=== PATIENT | male | born 1945 | race African-American/Black ===

== ENCOUNTER 2018-10-14 15:25 | Inpatient (IN) | payer MEDICARE, MEDICAID ==
[~2018-10-14] VITALS: Ht 167.6 cm; Wt 99.8 kg
[~2018-10-14 15:25] MED LIST: AMLO10TA4 PO
[2018-10-14] MEDS ORDERED: DEXTROSE 50% WATER 50ML SYRINGE IV ONE ×4 (17:36→19:00)
[2018-10-14] MEDS ORDERED: DEXT 5%/0.9% NACL 1,000 ML IV ONE (19:00)
[2018-10-14 19:31] LABS: BASOPHILS % 0.3 % (0.0-2.0); EOSINOPHILS % 3.7 % (0.0-5.0); HEMATOCRIT. 36.2 % (42.0-52.0); HEMOGLOBIN. 12.2 g/dL (14.0-18.0); LYMPHOCYTES % 53.6 % (20.0-50.0); MEAN CORPUSCULAR HEMOGLOBIN 34.2 pg (28.0-32.0); MEAN CORPUSCULAR VOLUME 101.7 fL (80.0-94.0); MEAN PLATELET VOLUME 7.5 fl (7.4-10.4); MONOCYTES % 11.5 % (2.0-8.0); NEUTROPHILS % 30.9 % (40.0-76.0); PLATELET 222 x1000/uL (130-400); RED BLOOD CELL COUNT 3.56 mill/uL (4.7-6.1); RED CELL DISTRIBUTION WIDTH 13.5 % (11.6-14.6)
[2018-10-14 19:34] LABS: CHLORIDE 107 mEq/L (98-107)
[2018-10-14 19:35] LABS: INR 1.1; PROTHROMBIN TIME 11.5 sec (9.1-11.1)
[2018-10-15] MEDS ORDERED: LORAZEPAM 2MG/ML CPJ IV PRN (01:45)
[2018-10-15] MEDS ORDERED: GUAIFENESIN 200MG/10ML SUGAR FREE UDC PO PRN (01:45)
[2018-10-15] MEDS ORDERED: ONDANSETRON HCL 4MG/2ML INJ IV PRN (01:45)
[2018-10-15] MEDS ORDERED: ACETAMINOPHEN 325MG TABLET PO PRN (01:45)
[2018-10-15] MEDS ORDERED: CLONIDINE 0.1MG TABLET PO PRN (01:45)
[2018-10-15] MEDS ORDERED: HYDROCODONE/ACETAMINOPHEN 5/325MG TABLET PO PRN (01:45)
[2018-10-15] MEDS ORDERED: MAGNESIUM/ALUMINUM HYDROXIDE/SIMETHICONE 30ML UDC PO PRN (01:45)
[2018-10-15] MEDS ORDERED: DOCUSATE SODIUM 100MG CAPSULE PO PRN (01:45)
[2018-10-15 01:54] VITALS: BP 114/78
[2018-10-15] MEDS ORDERED: DEXTROSE 50% WATER 50ML SYRINGE IV PRN (02:30)
[2018-10-15] MEDS: INSULIN LISPRO 100 UNITS/ML SUBCUT SCH ×4 (07:40→20:55)
[2018-10-15 08:00] VITALS: BP 132/81
[2018-10-15] MEDS: BLOOD SUGAR DIAGNOSTIC STRIP TEST SCH ×4 (08:28→20:55)
[2018-10-15] MEDS: ASPIRIN 81MG EC TABLET PO SCH (09:00)
[2018-10-15] MEDS: DEXT 5%/0.45% NACL 1000ML 1,000 ML IV SCH ×2 (09:05→23:09)
[2018-10-15 12:00] VITALS: BP 121/85
[2018-10-15 16:00] VITALS: BP 100/53
[2018-10-15 20:00] VITALS: BP 107/54
[2018-10-15 23:47] VITALS: BP 130/78
[2018-10-16 04:00] VITALS: BP 110/67
[2018-10-16] MEDS: INSULIN LISPRO 100 UNITS/ML SUBCUT SCH ×2 (06:22→12:40)
[2018-10-16] MEDS: BLOOD SUGAR DIAGNOSTIC STRIP TEST SCH ×2 (06:22→12:29)
[2018-10-16 06:25] LABS: CHLORIDE 107 mEq/L (98-107)
[2018-10-16 06:38] LABS: LDL CHOLESTEROL 61 mg/dL (5-100)
[2018-10-16 06:41] LABS: HDL CHOLESTEROL 31 mg/dL (40-59)
[2018-10-16 06:50] LABS: BASOPHILS % 0.3 % (0.0-2.0); EOSINOPHILS % 3.9 % (0.0-5.0); HEMATOCRIT. 37.5 % (42.0-52.0); HEMOGLOBIN. 12.6 g/dL (14.0-18.0); LYMPHOCYTES % 54.3 % (20.0-50.0); MEAN CORPUSCULAR HEMOGLOBIN 34.2 pg (28.0-32.0); MEAN CORPUSCULAR VOLUME 101.9 fL (80.0-94.0); MEAN PLATELET VOLUME 7.9 fl (7.4-10.4); MONOCYTES % 12.1 % (2.0-8.0); NEUTROPHILS % 29.4 % (40.0-76.0); PLATELET 236 x1000/uL (130-400); RED BLOOD CELL COUNT 3.68 mill/uL (4.7-6.1); RED CELL DISTRIBUTION WIDTH 13.3 % (11.6-14.6)
[2018-10-16 08:30] VITALS: BP 143/87
[2018-10-16] MEDS: ASPIRIN 81MG EC TABLET PO SCH (09:01)
[2018-10-16 12:00] VITALS: BP 133/78
[2018-10-16 13:48] VITALS: BP 133/78
== END 2018-10-16 15:55 | disposition home health service (06) | DRG 207 ==
LOC: ER 15:25 → 8WST 19:41 → EDBEDREQTM 19:47 → EDBEDREQ 19:47 → ENRESERV 10-15 00:33 → SUPCPDRO 10-15 01:32
PROVIDERS: ADMIT Hospitalist; ATTEND Hospitalist
DX: I95.9 Hypotension, unspecified (principal); E43 Unspecified severe protein-calorie malnutrition; J44.9 Chronic obstructive pulmonary disease, unspecified; I69.351 Hemiplegia and hemiparesis following cerebral infarction affecting right dominant side; E16.2 Hypoglycemia, unspecified; E78.00 Pure hypercholesterolemia, unspecified; E78.5 Hyperlipidemia, unspecified; F17.200 Nicotine dependence, unspecified, uncomplicated; I10 Essential (primary) hypertension; Z79.82 Long term (current) use of aspirin; Z68.35 Body mass index [BMI] 35.0-35.9, adult
CPT/HCPCS: 36415; 71045; 80061; 82962; 83036; 93005; 93970; 96365; 96376; 99285; C1893; J7042

== ENCOUNTER 2019-01-26 20:12 | Inpatient (IN) | payer MEDICARE, MEDICAID ==
[~2019-01-26] VITALS: Ht 172.7 cm; Wt 108.4 kg
[~2019-01-26 20:12] MED LIST changes: +ACET325C5 PO; +ASPI-1158 PO; +ATOR40TA70 PO; +CHOL100034 PO; +GLIP5TAB12 PO; +HYDR12.54 PO; +LORA10TA7 PO; +LOSA50TA20 PO; +TIOT18CA3 IH
[2019-01-26] MEDS ORDERED: METHYLPREDNISOLONE SOD SUCC 125 MG/2 ML VIAL IV STA (20:21)
[2019-01-26] MEDS ORDERED: MAGNESIUM 2 G PREMIX 50 ML IV ONE (20:30)
[2019-01-26] MEDS ORDERED: PIPERACILLIN/TAZ 3.375G PREMIX 50 ML IV ONE (20:30)
[2019-01-26] MEDS ORDERED: IPRATROPIUM/ALBUTEROL 0.5-3(2.5)MG/3ML NEB HHN ONE (20:30)
[2019-01-26] MEDS ORDERED: LEVOFLOXACIN 750MG PREMIX 150 ML IV ONE (20:30)
[2019-01-26 20:33] LABS: BG CARBOXYHEMOGLOBIN 1.3 % (0.5-1.5); BG DEOXYHEMOGLOBIN 5.1 % (0.0-5.0); BG FRACTION INSPIRED OXYGEN 36; BG HCO3 ACT 21.1 mmol/L (22.0-26.0); BG METHEMOGLOBIN 0.1 % (0.0-1.5); BG OXYGEN SATURATION 94.8 % (92.0-98.5); BG OXYHEMOGLOBIN 93.5 % (94.0-97.0); BG PCO2 42.7 mmHg (35.0-45.0); BG PH 7.311 (7.350-7.450); BG PO2 82.5 mmHg (75.0-100.0); BG SAMPLE SITE RIGHT RADIAL; BG TOTAL HEMOGLOBIN 14.6 g/dL (12.0-18.0)
[2019-01-26 21:01] LABS: BASOPHILS % 0.7 % (0.0-2.0); EOSINOPHILS % 4.6 % (0.0-5.0); HEMOGLOBIN. 13.9 g/dL (14.0-18.0); MEAN CORPUSCULAR HEMOGLOBIN 35.4 pg (28.0-32.0); MEAN CORPUSCULAR VOLUME 104.3 fL (80.0-94.0); MEAN PLATELET VOLUME 7.4 fl (7.4-10.4); MONOCYTES % 9.5 % (2.0-8.0); NEUTROPHILS % 33.2 % (40.0-76.0); PLATELET 268 x1000/uL (130-400); RED BLOOD CELL COUNT 3.94 mill/uL (4.7-6.1); RED CELL DISTRIBUTION WIDTH 14.7 % (11.6-14.6)
[2019-01-26 21:03] LABS: CHLORIDE 105 mEq/L (98-107)
[2019-01-26 21:07] LABS: ETHANOL BLOOD < 10 mg/dL
[2019-01-26 21:09] LABS: D-DIMER 0.98 mg/L FEU (<0.50); INR 1.1; PARTIAL THROMBOPLASTIN TIME 26.4 sec (23.4-31.0); PROTHROMBIN TIME 11.4 sec (9.6-11.0)
[2019-01-27] VITALS (8 sets, daily range): BP systolic 100–144; BP diastolic 57–107
[2019-01-27] MEDS ORDERED: DEXTROSE 50% WATER 50ML SYRINGE IV PRN (02:00)
[2019-01-27] MEDS: DEXT 5%/0.45% NACL KCL 20MEQ/L 1,000 ML IV SCH ×2 (03:00→19:17)
[2019-01-27] MEDS: IPRATROPIUM/ALBUTEROL 0.5-3(2.5)MG/3ML NEB HHN SCH ×5 (04:51→21:39)
[2019-01-27 05:55] LABS: BASOPHILS % 0.2 % (0.0-2.0); EOSINOPHILS % 0.1 % (0.0-5.0); HEMATOCRIT. 38.3 % (42.0-52.0); HEMOGLOBIN. 12.9 g/dL (14.0-18.0); LYMPHOCYTES % 14.9 % (20.0-50.0); MEAN CORPUSCULAR HEMOGLOBIN 34.7 pg (28.0-32.0); MEAN CORPUSCULAR VOLUME 103.3 fL (80.0-94.0); MEAN PLATELET VOLUME 7.9 fl (7.4-10.4); MONOCYTES % 2.3 % (2.0-8.0); NEUTROPHILS % 82.5 % (40.0-76.0); PLATELET 253 x1000/uL (130-400); RED BLOOD CELL COUNT 3.71 mill/uL (4.7-6.1); RED CELL DISTRIBUTION WIDTH 14.3 % (11.6-14.6)
[2019-01-27 06:21] LABS: CHLORIDE 104 mEq/L (98-107)
[2019-01-27] MEDS: BLOOD SUGAR DIAGNOSTIC STRIP TEST SCH ×4 (07:30→20:41)
[2019-01-27] MEDS ORDERED: FUROSEMIDE 40MG/4ML VIAL IVP SCH (07:45)
[2019-01-27] MEDS: METHYLPREDNISOLONE SOD SUCC 40 MG/ML VIAL IV SCH ×2 (09:17→19:12)
[2019-01-27] MEDS: INSULIN LISPRO 100 UNITS/ML SUBCUT SCH ×4 (09:26→21:27)
[2019-01-27] MEDS ORDERED: ASPIRIN 300MG SUPP PR PRN (15:30)
[2019-01-27] MEDS ORDERED: SODIUM CHLORIDE 10% FOR INH 15ML VIAL NEB INH SCH (15:45)
[2019-01-27 16:20] LABS: BG BASE EXCESS -1.4 mmol/L (-2.0-2.0); BG DEOXYHEMOGLOBIN 4.6 % (0.0-5.0); BG FRACTION INSPIRED OXYGEN 30; BG OXYGEN SATURATION 95.4 % (92.0-98.5); BG OXYHEMOGLOBIN 94.4 % (94.0-97.0); BG PCO2 33.1 mmHg (35.0-45.0); BG PH 7.441 (7.350-7.450); BG PO2 74.9 mmHg (75.0-100.0); BG SAMPLE SITE LEFT RADIAL; BG TOTAL HEMOGLOBIN 12.9 g/dL (12.0-18.0); BG VENT MODE NASAL CANNULA
[2019-01-27] MEDS: LORAZEPAM 2MG/ML CPJ IV PRN (16:38)
[2019-01-27 18:31] LABS: CLARITY URINE CLEAR (CLEAR); COLOR URINE YELLOW (YELLOW); KETONES URINE NEGATIVE (NEGATIVE); LEUKOCYTE ESTERASE URINE NEGATIVE (NEGATIVE); NITRITE URINE NEGATIVE (NEGATIVE); OCCULT BLOOD URINE 3+ (NEGATIVE); PROTEIN URINE NEGATIVE (NEGATIVE); SPECIFIC GRAVITY URINE 1.013 (1.005-1.030); UROBILINOGEN URINE 0.2 E.U./dL (0.2-1.0)
[2019-01-27 18:42] LABS: *AMPHETAMINES SCREEN URINE NEGATIVE (NEGATIVE); *BARBITURATES SCREEN URINE NEGATIVE (NEGATIVE); CANNABINOID URINE SCREEN NEGATIVE (NEGATIVE)
[2019-01-27 18:43] LABS: *BENZODIAZEPINES SCREEN URINE NEGATIVE (NEGATIVE); *COCAINE SCREEN URINE NEGATIVE (NEGATIVE); METHADONE URINE SCREEN NEGATIVE (NEGATIVE); OPIATES URINE SCREEN NEGATIVE (NEGATIVE); PHENCYCLIDINE URINE SCREEN NEGATIVE (NEGATIVE)
[2019-01-27] MEDS: CEFEPIME 1,000 MG in DEXTROSE 5% WATER 50 ML IV SCH (19:12)
[2019-01-27 19:58] LABS: C REACTIVE PROTEIN QUANT 0.7 mg/L (0.0-3.0)
[2019-01-27 20:02] LABS: T4 FREE 1.14 ng/dL (0.76-1.46)
[2019-01-27] MEDS: METRONIDAZOLE 500 MG PREMIX 100 ML IV SCH (20:24)
[2019-01-27 21:52] LABS: FOLIC ACID (FOLATE) SERUM > 20.00 ng/mL (>5.38); VITAMIN B12 SERUM 356 pg/mL (211-911)
[2019-01-28] VITALS (9 sets, daily range): BP systolic 102–159; BP diastolic 33–104
[2019-01-28] MEDS: METHYLPREDNISOLONE SOD SUCC 40 MG/ML VIAL IV SCH ×2 (00:55→08:54)
[2019-01-28] MEDS: METRONIDAZOLE 500 MG PREMIX 100 ML IV SCH ×2 (02:12→09:01)
[2019-01-28] MEDS: IPRATROPIUM/ALBUTEROL 0.5-3(2.5)MG/3ML NEB HHN SCH ×6 (02:17→21:10)
[2019-01-28] MEDS: CEFEPIME 1,000 MG in DEXTROSE 5% WATER 50 ML IV SCH (05:17)
[2019-01-28] MEDS: DEXT 5%/0.45% NACL KCL 20MEQ/L 1,000 ML IV SCH ×2 (05:40→15:36)
[2019-01-28 06:17] LABS: BASOPHILS % 0.2 % (0.0-2.0); HEMATOCRIT. 37.6 % (42.0-52.0); HEMOGLOBIN. 12.7 g/dL (14.0-18.0); LYMPHOCYTES % 8.9 % (20.0-50.0); MEAN CORPUSCULAR HEMOGLOBIN 34.7 pg (28.0-32.0); MEAN CORPUSCULAR VOLUME 102.6 fL (80.0-94.0); MEAN PLATELET VOLUME 7.6 fl (7.4-10.4); MONOCYTES % 5.3 % (2.0-8.0); NEUTROPHILS % 85.6 % (40.0-76.0); PLATELET 261 x1000/uL (130-400); RED BLOOD CELL COUNT 3.67 mill/uL (4.7-6.1); RED CELL DISTRIBUTION WIDTH 14.3 % (11.6-14.6)
[2019-01-28 06:29] LABS: CHLORIDE 105 mEq/L (98-107)
[2019-01-28] MEDS: LORAZEPAM 2MG/ML CPJ IV PRN ×2 (06:39→16:39)
[2019-01-28] MEDS: BLOOD SUGAR DIAGNOSTIC STRIP TEST SCH ×4 (07:50→21:00)
[2019-01-28] MEDS: INSULIN LISPRO 100 UNITS/ML SUBCUT SCH ×4 (08:00→21:00)
[2019-01-28] MEDS: FUROSEMIDE 40MG/4ML VIAL IVP SCH (08:54)
[2019-01-28] MEDS: CLOPIDOGREL 75MG TABLET PO SCH (14:05)
[2019-01-28] MEDS: PIPERACILLIN/TAZ 3.375G PREMIX 50 ML IV SCH ×2 (15:32→23:59)
[2019-01-28] MEDS ORDERED: VANCOMYCIN 2,000 MG in DEXT 5% WATER 500 ML IV SCH (16:00)
[2019-01-28 16:30] LABS: BG BASE EXCESS -2.7 mmol/L (-2.0-2.0); BG CARBOXYHEMOGLOBIN 0.3 % (0.5-1.5); BG DEOXYHEMOGLOBIN 5.9 % (0.0-5.0); BG HCO3 ACT 21.3 mmol/L (22.0-26.0); BG METHEMOGLOBIN 0.2 % (0.0-1.5); BG OXYGEN SATURATION 94.1 % (92.0-98.5); BG OXYHEMOGLOBIN 93.6 % (94.0-97.0); BG PCO2 34.4 mmHg (35.0-45.0); BG PH 7.409 (7.350-7.450); BG PO2 72.8 mmHg (75.0-100.0); BG SAMPLE SITE RIGHT RADIAL; BG TOTAL HEMOGLOBIN 13.4 g/dL (12.0-18.0); BG VENT MODE NASAL CANNULA
[2019-01-28] MEDS: METHYLPREDNISOLONE SOD SUCC 125 MG/2 ML VIAL IV SCH ×2 (16:40→23:59)
[2019-01-28] MEDS ORDERED: IOHEXOL-350 100 ML BOTTLE ONE (17:39)
[2019-01-28] MEDS: DEXAMETHASONE 4MG/ML 1ML VIAL IV SCH ×2 (18:36→23:59)
[2019-01-29] VITALS (12 sets, daily range): BP systolic 108–154; BP diastolic 71–93
[2019-01-29] MEDS: IPRATROPIUM/ALBUTEROL 0.5-3(2.5)MG/3ML NEB HHN SCH ×5 (00:06→21:06)
[2019-01-29] MEDS: BLOOD SUGAR DIAGNOSTIC STRIP TEST SCH ×4 (05:28→21:00)
[2019-01-29] MEDS: METHYLPREDNISOLONE SOD SUCC 125 MG/2 ML VIAL IV SCH ×2 (05:35→09:31)
[2019-01-29] MEDS: PIPERACILLIN/TAZ 3.375G PREMIX 50 ML IV SCH ×3 (05:35→22:03)
[2019-01-29] MEDS: DEXAMETHASONE 4MG/ML 1ML VIAL IV SCH ×2 (05:35→12:10)
[2019-01-29 07:33] LABS: HEMATOCRIT. 36.9 % (42.0-52.0); HEMOGLOBIN. 12.6 g/dL (14.0-18.0); MEAN CORPUSCULAR VOLUME 102.5 fL (80.0-94.0); MEAN PLATELET VOLUME 7.4 fl (7.4-10.4); PLATELET 272 x1000/uL (130-400); RED CELL DISTRIBUTION WIDTH 14.4 % (11.6-14.6)
[2019-01-29] MEDS: INSULIN LISPRO 100 UNITS/ML SUBCUT SCH ×4 (09:30→22:27)
[2019-01-29] MEDS: FUROSEMIDE 40MG/4ML VIAL IVP SCH (09:31)
[2019-01-29] MEDS: CLOPIDOGREL 75MG TABLET PO SCH (09:31)
[2019-01-29 10:35] LABS: PLATELET ESTIMATE NORMAL
[2019-01-29] MEDS ORDERED: LACTULOSE 20G/30ML UDC PO NR (11:00)
[2019-01-29] MEDS ORDERED: LIDOCAINE HCL/PF 1% 2ML VIAL ONE (11:00)
[2019-01-29] MEDS ORDERED: LACTULOSE 20G/30ML UDC PO PRN (11:00)
[2019-01-29] MEDS ORDERED: METHYLPREDNISOLONE SOD SUCC 40 MG/ML VIAL IV SCH (11:30)
[2019-01-29 11:37] LABS: BG BASE EXCESS -2.8 mmol/L (-2.0-2.0); BG CARBOXYHEMOGLOBIN 0.5 % (0.5-1.5); BG DEOXYHEMOGLOBIN 5.6 % (0.0-5.0); BG FRACTION INSPIRED OXYGEN 50; BG HCO3 ACT 21.1 mmol/L (22.0-26.0); BG METHEMOGLOBIN 0.1 % (0.0-1.5); BG OXYGEN SATURATION 94.4 % (92.0-98.5); BG OXYHEMOGLOBIN 93.8 % (94.0-97.0); BG PH 7.411 (7.350-7.450); BG PO2 72.3 mmHg (75.0-100.0); BG SAMPLE SITE RIGHT RADIAL; BG TOTAL HEMOGLOBIN 13.3 g/dL (12.0-18.0); BG VENT MODE MASK - VENTI
[2019-01-29] MEDS: DOCUSATE SODIUM 250MG CAPSULE PO SCH (12:09)
[2019-01-29] MEDS: ENOXAPARIN 40MG/0.4ML SYR SUBCUT SCH (12:10)
[2019-01-29] MEDS ORDERED: VANCOMYCIN 1,250 MG in DEXT 5% WATER 250 ML IV SCH (16:00)
[2019-01-29 17:15] LABS: ANTI-NUCLEAR ANTIBODIES DIRECT Negative (Negative)
[2019-01-29] MEDS: METHYLPREDNISOLONE SOD SUCC 40 MG/ML VIAL IV SCH (17:47)
[2019-01-29] MEDS: MORPHINE SULFATE 4 MG/ML CPJ (NOT FOR IM USE) IV PRN (22:03)
[2019-01-30] VITALS (12 sets, daily range): BP systolic 105–154; BP diastolic 73–102
[2019-01-30] MEDS: IPRATROPIUM/ALBUTEROL 0.5-3(2.5)MG/3ML NEB HHN SCH ×6 (00:13→20:19)
[2019-01-30] MEDS: METHYLPREDNISOLONE SOD SUCC 40 MG/ML VIAL IV SCH ×2 (01:09→08:32)
[2019-01-30] MEDS: LORAZEPAM 2MG/ML CPJ IV PRN (03:51)
[2019-01-30] MEDS: PIPERACILLIN/TAZ 3.375G PREMIX 50 ML IV SCH (06:46)
[2019-01-30] MEDS: BLOOD SUGAR DIAGNOSTIC STRIP TEST SCH ×4 (07:30→21:00)
[2019-01-30 07:48] LABS: HEMATOCRIT. 37.8 % (42.0-52.0); HEMOGLOBIN. 12.9 g/dL (14.0-18.0); MEAN CORPUSCULAR HEMOGLOBIN 34.9 pg (28.0-32.0); MEAN CORPUSCULAR VOLUME 102.4 fL (80.0-94.0); MEAN PLATELET VOLUME 7.7 fl (7.4-10.4); PLATELET 267 x1000/uL (130-400); RED BLOOD CELL COUNT 3.69 mill/uL (4.7-6.1); RED CELL DISTRIBUTION WIDTH 14.1 % (11.6-14.6)
[2019-01-30] MEDS: FUROSEMIDE 40MG/4ML VIAL IVP SCH (08:32)
[2019-01-30] MEDS: DOCUSATE SODIUM 250MG CAPSULE PO SCH (08:32)
[2019-01-30] MEDS: CLOPIDOGREL 75MG TABLET PO SCH (08:32)
[2019-01-30] MEDS: INSULIN LISPRO 100 UNITS/ML SUBCUT SCH ×4 (08:33→21:00)
[2019-01-30] MEDS: ENOXAPARIN 40MG/0.4ML SYR SUBCUT SCH (08:34)
[2019-01-30 12:00] LABS: BG BASE EXCESS 0.2 mmol/L (-2.0-2.0); BG DEOXYHEMOGLOBIN 6.7 % (0.0-5.0); BG FRACTION INSPIRED OXYGEN 36; BG HCO3 ACT 24.8 mmol/L (22.0-26.0); BG METHEMOGLOBIN 0.1 % (0.0-1.5); BG OXYGEN SATURATION 93.2 % (92.0-98.5); BG OXYHEMOGLOBIN 92.2 % (94.0-97.0); BG PCO2 40.2 mmHg (35.0-45.0); BG PH 7.408 (7.350-7.450); BG PO2 69.5 mmHg (75.0-100.0); BG SAMPLE SITE RIGHT RADIAL; BG TOTAL HEMOGLOBIN 13.7 g/dL (12.0-18.0); BG VENT MODE NASAL CANNULA
[2019-01-30 17:58] LABS: PLATELET ESTIMATE NORMAL
[2019-01-31] VITALS (12 sets, daily range): BP systolic 96–155; BP diastolic 60–102
[2019-01-31] MEDS: IPRATROPIUM/ALBUTEROL 0.5-3(2.5)MG/3ML NEB HHN SCH ×6 (00:20→20:09)
[2019-01-31 05:54] LABS: HEMATOCRIT. 38.9 % (42.0-52.0); HEMOGLOBIN. 13.5 g/dL (14.0-18.0); MEAN CORPUSCULAR HEMOGLOBIN 35.3 pg (28.0-32.0); MEAN CORPUSCULAR VOLUME 101.4 fL (80.0-94.0); MEAN PLATELET VOLUME 7.4 fl (7.4-10.4); PLATELET 286 x1000/uL (130-400); RED BLOOD CELL COUNT 3.84 mill/uL (4.7-6.1); RED CELL DISTRIBUTION WIDTH 14.3 % (11.6-14.6)
[2019-01-31] MEDS: BLOOD SUGAR DIAGNOSTIC STRIP TEST SCH ×4 (07:31→21:00)
[2019-01-31] MEDS: INSULIN LISPRO 100 UNITS/ML SUBCUT SCH ×4 (08:00→21:00)
[2019-01-31] MEDS: DOCUSATE SODIUM 250MG CAPSULE PO SCH (08:34)
[2019-01-31] MEDS: CLOPIDOGREL 75MG TABLET PO SCH (08:40)
[2019-01-31] MEDS: ENOXAPARIN 30MG/0.3ML SYR SUBCUT SCH ×2 (08:41→21:14)
[2019-01-31] MEDS: LORAZEPAM 2MG/ML CPJ IV PRN (08:41)
[2019-01-31] MEDS ORDERED: CLOPIDOGREL 75MG TABLET PO SCH (09:00)
[2019-01-31] MEDS ORDERED: PREDNISONE 20MG TABLET PO SCH (09:00)
[2019-01-31 13:11] LABS: ANTI-MYELOPEROXIDASE AB < 9.0 U/mL (0.0-9.0); ANTI-PROTEINASE 3 ABS < 3.5 U/mL (0.0-3.5)
[2019-01-31 16:23] LABS: PLATELET ESTIMATE NORMAL
[2019-01-31 17:11] LABS: ATYPICAL P-ANCA <1:20 titer (Neg:<1:20); CYTOPLASMIC C-ANCA <1:20 titer (Neg:<1:20); PERINUCLEAR P-ANCA <1:20 titer (Neg:<1:20)
[2019-01-31] MEDS: BUDESONIDE 0.5MG/2ML NEB HHN SCH (20:09)
[2019-02-01] VITALS (14 sets, daily range): BP systolic 125–151; BP diastolic 41–107
[2019-02-01] MEDS: IPRATROPIUM/ALBUTEROL 0.5-3(2.5)MG/3ML NEB HHN SCH ×6 (00:07→20:44)
[2019-02-01 06:50] LABS: HEMATOCRIT. 41.5 % (42.0-52.0); HEMOGLOBIN. 13.7 g/dL (14.0-18.0); MEAN CORPUSCULAR HEMOGLOBIN 34.5 pg (28.0-32.0); MEAN CORPUSCULAR VOLUME 104.5 fL (80.0-94.0); MEAN PLATELET VOLUME 7.3 fl (7.4-10.4); PLATELET 246 x1000/uL (130-400); RED BLOOD CELL COUNT 3.97 mill/uL (4.7-6.1); RED CELL DISTRIBUTION WIDTH 14.6 % (11.6-14.6)
[2019-02-01 07:19] LABS: CHLORIDE 110 mEq/L (98-107)
[2019-02-01] MEDS: BLOOD SUGAR DIAGNOSTIC STRIP TEST SCH ×4 (07:30→20:20)
[2019-02-01] MEDS: INSULIN LISPRO 100 UNITS/ML SUBCUT SCH ×4 (08:00→20:21)
[2019-02-01] MEDS: BUDESONIDE 0.5MG/2ML NEB HHN SCH ×2 (08:20→20:44)
[2019-02-01] MEDS: CLOPIDOGREL 75MG TABLET PO SCH (08:23)
[2019-02-01] MEDS: DOCUSATE SODIUM 250MG CAPSULE PO SCH (08:23)
[2019-02-01 08:24] LABS: EBV VIRAL CAPSID AB IGM <36.0 U/mL (0.0-35.9)
[2019-02-01] MEDS: ENOXAPARIN 30MG/0.3ML SYR SUBCUT SCH ×2 (08:24→20:20)
[2019-02-01] MEDS ORDERED: FUROSEMIDE 40MG/4ML VIAL IVP NR (10:45)
[2019-02-01 11:17] LABS: PLATELET ESTIMATE NORMAL
[2019-02-02] VITALS (13 sets, daily range): BP systolic 106–160; BP diastolic 64–92
[2019-02-02] MEDS: IPRATROPIUM/ALBUTEROL 0.5-3(2.5)MG/3ML NEB HHN SCH ×6 (00:50→20:22)
[2019-02-02 06:36] LABS: HEMATOCRIT. 38.7 % (42.0-52.0); HEMOGLOBIN. 13.3 g/dL (14.0-18.0); MEAN CORPUSCULAR HEMOGLOBIN 35.3 pg (28.0-32.0); MEAN CORPUSCULAR VOLUME 102.7 fL (80.0-94.0); MEAN PLATELET VOLUME 7.6 fl (7.4-10.4); PLATELET 278 x1000/uL (130-400); RED BLOOD CELL COUNT 3.77 mill/uL (4.7-6.1); RED CELL DISTRIBUTION WIDTH 13.7 % (11.6-14.6)
[2019-02-02 06:56] LABS: CHLORIDE 107 mEq/L (98-107)
[2019-02-02] MEDS: BLOOD SUGAR DIAGNOSTIC STRIP TEST SCH ×5 (07:30→21:00)
[2019-02-02] MEDS: INSULIN LISPRO 100 UNITS/ML SUBCUT SCH ×4 (08:00→21:00)
[2019-02-02] MEDS: ENOXAPARIN 30MG/0.3ML SYR SUBCUT SCH ×2 (08:49→22:13)
[2019-02-02] MEDS: CLOPIDOGREL 75MG TABLET PO SCH (08:50)
[2019-02-02] MEDS: DOCUSATE SODIUM 250MG CAPSULE PO SCH (08:50)
[2019-02-02] MEDS: BUDESONIDE 0.5MG/2ML NEB HHN SCH ×2 (09:39→20:21)
[2019-02-02 12:56] LABS: PLATELET ESTIMATE NORMAL
[2019-02-02] MEDS: MORPHINE SULFATE 4 MG/ML CPJ (NOT FOR IM USE) IV PRN (22:12)
[2019-02-02] MEDS: POLYETHYLENE GLYCOL 3350 (17GM) 1 DOSE PACK PO SCH (22:13)
[2019-02-03] VITALS: BP 125/85
[2019-02-03] MEDS: IPRATROPIUM/ALBUTEROL 0.5-3(2.5)MG/3ML NEB HHN SCH ×6 (00:04→20:21)
[2019-02-03] MEDS: BLOOD SUGAR DIAGNOSTIC STRIP TEST SCH ×2 (07:32→20:35)
[2019-02-03] MEDS: INSULIN LISPRO 100 UNITS/ML SUBCUT SCH ×3 (07:45→20:36)
[2019-02-03 08:00] VITALS: BP 141/85
[2019-02-03] MEDS: BUDESONIDE 0.5MG/2ML NEB HHN SCH (08:01)
[2019-02-03] MEDS: DOCUSATE SODIUM 250MG CAPSULE PO SCH ×2 (08:58→09:00)
[2019-02-03] MEDS: CLOPIDOGREL 75MG TABLET PO SCH (08:58)
[2019-02-03] MEDS: ENOXAPARIN 30MG/0.3ML SYR SUBCUT SCH ×2 (08:59→20:35)
[2019-02-03] MEDS: MORPHINE SULFATE 2 MG/ML CPJ (NOT FOR IM USE) IV PRN (09:00)
[2019-02-03 12:00] VITALS: BP 138/79
[2019-02-03 16:00] VITALS: BP 120/76
[2019-02-03 20:00] VITALS: BP 132/86
[2019-02-03] MEDS: DIPHENHYDRAMINE 50MG/ML VIAL IV PRN (20:34)
[2019-02-03] MEDS: POLYETHYLENE GLYCOL 3350 (17GM) 1 DOSE PACK PO SCH (20:34)
[2019-02-04] VITALS: BP 149/92
[2019-02-04] MEDS: IPRATROPIUM/ALBUTEROL 0.5-3(2.5)MG/3ML NEB HHN SCH ×6 (01:05→20:39)
[2019-02-04 04:00] VITALS: BP 136/95
[2019-02-04] MEDS: BLOOD SUGAR DIAGNOSTIC STRIP TEST SCH ×2 (06:50→20:54)
[2019-02-04 07:13] LABS: BASOPHILS % 0.5 % (0.0-2.0); EOSINOPHILS % 6.4 % (0.0-5.0); HEMATOCRIT. 37.8 % (42.0-52.0); HEMOGLOBIN. 12.8 g/dL (14.0-18.0); MEAN CORPUSCULAR HEMOGLOBIN 35.1 pg (28.0-32.0); MEAN CORPUSCULAR VOLUME 103.5 fL (80.0-94.0); MEAN PLATELET VOLUME 7.6 fl (7.4-10.4); MONOCYTES % 14.6 % (2.0-8.0); NEUTROPHILS % 35.5 % (40.0-76.0); PLATELET 250 x1000/uL (130-400); RED BLOOD CELL COUNT 3.66 mill/uL (4.7-6.1); RED CELL DISTRIBUTION WIDTH 14.3 % (11.6-14.6)
[2019-02-04 07:37] LABS: CHLORIDE 105 mEq/L (98-107)
[2019-02-04 08:00] VITALS: BP 124/84
[2019-02-04] MEDS: DOCUSATE SODIUM 250MG CAPSULE PO SCH (08:50)
[2019-02-04] MEDS: CLOPIDOGREL 75MG TABLET PO SCH (08:50)
[2019-02-04] MEDS: ENOXAPARIN 30MG/0.3ML SYR SUBCUT SCH ×2 (08:50→21:06)
[2019-02-04] MEDS: MORPHINE SULFATE 2 MG/ML CPJ (NOT FOR IM USE) IV PRN (11:13)
[2019-02-04 12:00] VITALS: BP 121/75
[2019-02-04] MEDS: LACTULOSE 20G/30ML UDC PO SCH ×3 (14:15→21:06)
[2019-02-04 16:00] VITALS: BP 135/83
[2019-02-04 20:00] VITALS: BP 126/93
[2019-02-04] MEDS: INSULIN LISPRO 100 UNITS/ML SUBCUT SCH (20:55)
[2019-02-04] MEDS: QUETIAPINE FUMARATE 25MG TABLET PO SCH (21:06)
[2019-02-04] MEDS: POLYETHYLENE GLYCOL 3350 (17GM) 1 DOSE PACK PO SCH (21:06)
[2019-02-05] VITALS: BP 134/86
[2019-02-05] MEDS: IPRATROPIUM/ALBUTEROL 0.5-3(2.5)MG/3ML NEB HHN SCH ×5 (01:51→21:59)
[2019-02-05 04:00] VITALS: BP 138/84
[2019-02-05 08:00] VITALS: BP 134/85
[2019-02-05] MEDS: INSULIN LISPRO 100 UNITS/ML SUBCUT SCH ×4 (08:08→21:00)
[2019-02-05] MEDS: BLOOD SUGAR DIAGNOSTIC STRIP TEST SCH ×4 (08:08→21:34)
[2019-02-05] MEDS: CLOPIDOGREL 75MG TABLET PO SCH (08:49)
[2019-02-05] MEDS: DOCUSATE SODIUM 250MG CAPSULE PO SCH (08:49)
[2019-02-05] MEDS: ENOXAPARIN 30MG/0.3ML SYR SUBCUT SCH ×2 (08:51→21:32)
[2019-02-05 12:00] VITALS: BP 96/54
[2019-02-05 16:00] VITALS: BP 119/86
[2019-02-05] MEDS: POLYETHYLENE GLYCOL 3350 (17GM) 1 DOSE PACK PO SCH (21:32)
[2019-02-05] MEDS: QUETIAPINE FUMARATE 25MG TABLET PO SCH (21:32)
[2019-02-06] VITALS (7 sets, daily range): BP systolic 110–148; BP diastolic 65–97
[2019-02-06] MEDS: IPRATROPIUM/ALBUTEROL 0.5-3(2.5)MG/3ML NEB HHN SCH ×6 (01:26→21:17)
[2019-02-06] MEDS: BLOOD SUGAR DIAGNOSTIC STRIP TEST SCH ×4 (07:29→20:29)
[2019-02-06] MEDS: INSULIN LISPRO 100 UNITS/ML SUBCUT SCH ×4 (07:31→20:29)
[2019-02-06] MEDS: ENOXAPARIN 30MG/0.3ML SYR SUBCUT SCH ×2 (09:32→20:34)
[2019-02-06] MEDS: CLOPIDOGREL 75MG TABLET PO SCH (09:32)
[2019-02-06] MEDS: DOCUSATE SODIUM 250MG CAPSULE PO SCH (09:32)
[2019-02-06] MEDS ORDERED: NA PHOS,M-B/NA PHOS,DI-BA ENEMA 118ML PR PRN (13:00)
[2019-02-06] MEDS ORDERED: BISACODYL 10MG SUPP PR PRN (13:00)
[2019-02-06] MEDS ORDERED: NA PHOS,M-B/NA PHOS,DI-BA ENEMA 118ML PR SCH (13:00)
[2019-02-06] MEDS: LACTULOSE 20G/30ML UDC PO SCH ×3 (14:01→20:34)
[2019-02-06] MEDS: DIPHENHYDRAMINE 50MG/ML VIAL IV PRN (17:07)
[2019-02-06] MEDS: POLYETHYLENE GLYCOL 3350 (17GM) 1 DOSE PACK PO SCH ×2 (20:35)
[2019-02-06] MEDS: QUETIAPINE FUMARATE 25MG TABLET PO SCH (20:35)
[2019-02-07] VITALS: BP 130/71
[2019-02-07] MEDS: IPRATROPIUM/ALBUTEROL 0.5-3(2.5)MG/3ML NEB HHN SCH ×6 (00:32→21:00)
[2019-02-07 04:00] VITALS: BP 110/71
[2019-02-07] MEDS: BLOOD SUGAR DIAGNOSTIC STRIP TEST SCH ×4 (06:46→20:31)
[2019-02-07 08:00] VITALS: BP 102/68
[2019-02-07] MEDS: INSULIN LISPRO 100 UNITS/ML SUBCUT SCH ×4 (08:10→20:31)
[2019-02-07] MEDS: ENOXAPARIN 30MG/0.3ML SYR SUBCUT SCH ×2 (11:00→20:36)
[2019-02-07] MEDS: CLOPIDOGREL 75MG TABLET PO SCH (11:00)
[2019-02-07] MEDS: DOCUSATE SODIUM 250MG CAPSULE PO SCH (11:00)
[2019-02-07 12:00] VITALS: BP 123/80
[2019-02-07] MEDS: POLYETHYLENE GLYCOL 3350 (17GM) 1 DOSE PACK PO SCH (15:34)
[2019-02-07 16:00] VITALS: BP_SYST 110; BP_SYST 123; BP_DIAS 56; BP_DIAS 63
[2019-02-07] MEDS ORDERED: SORBITOL 70% SOLN 30ML PO NR (16:00)
[2019-02-07 20:00] VITALS: BP 134/80
[2019-02-07] MEDS: QUETIAPINE FUMARATE 25MG TABLET PO SCH (20:36)
[2019-02-08] VITALS: BP 125/70
[2019-02-08] MEDS: IPRATROPIUM/ALBUTEROL 0.5-3(2.5)MG/3ML NEB HHN SCH ×5 (00:07→16:34)
[2019-02-08 04:00] VITALS: BP 108/73
[2019-02-08] MEDS: BLOOD SUGAR DIAGNOSTIC STRIP TEST SCH ×2 (06:59→12:37)
[2019-02-08] MEDS: INSULIN LISPRO 100 UNITS/ML SUBCUT SCH ×2 (07:59→12:37)
[2019-02-08 08:00] VITALS: BP 118/78
[2019-02-08] MEDS ORDERED: DOCUSATE SODIUM 100MG CAPSULE PO SCH (09:00)
[2019-02-08] MEDS: CLOPIDOGREL 75MG TABLET PO SCH (10:29)
[2019-02-08] MEDS: ENOXAPARIN 30MG/0.3ML SYR SUBCUT SCH (10:31)
[2019-02-08 12:00] VITALS: BP 135/85
[2019-02-08 14:02] VITALS: BP 135/85
[2019-02-08] MEDS ORDERED: SORBITOL 70% SOLN 30ML PO SCH (14:30)
== END 2019-02-08 16:45 | DRG 45 ==
LOC: ER 20:12 → 5EST 23:23 → EDBEDREQ 23:28 → EDBEDREQTM 23:28 → EDBEDREQSVC 23:28 → ENRESERV 23:46 → 5EST 01-27 17:44 → 7WST 02-02 17:30
PROVIDERS: ADMIT Internal Medicine; ATTEND Internal Medicine
PROC: 4A00X4Z Measurement of Central Nervous Electrical Activity, External Approach (ICD-10-PCS; principal; 2019-01-26)
PROC: 5A09357 Assistance with Respiratory Ventilation, Less than 24 Consecutive Hours, Continuous Positive Airway Pressure (ICD-10-PCS; 2019-01-26)
PROC: 5A09357 Assistance with Respiratory Ventilation, Less than 24 Consecutive Hours, Continuous Positive Airway Pressure (ICD-10-PCS; 2019-01-27)
DX: I63.9 Cerebral infarction, unspecified (principal); J69.0 Pneumonitis due to inhalation of food and vomit; J96.01 Acute respiratory failure with hypoxia; I50.33 Acute on chronic diastolic (congestive) heart failure; G92 Toxic encephalopathy; G93.6 Cerebral edema; N17.9 Acute kidney failure, unspecified; R13.10 Dysphagia, unspecified; J44.1 Chronic obstructive pulmonary disease with (acute) exacerbation; E44.1 Mild protein-calorie malnutrition; I69.351 Hemiplegia and hemiparesis following cerebral infarction affecting right dominant side; E78.00 Pure hypercholesterolemia, unspecified; E66.9 Obesity, unspecified; I11.0 Hypertensive heart disease with heart failure; J33.8 Other polyp of sinus; E11.9 Type 2 diabetes mellitus without complications; H54.7 Unspecified visual loss; K56.41 Fecal impaction; R47.01 Aphasia; J98.11 Atelectasis; Z88.9 Allergy status to unspecified drugs, medicaments and biological substances; Z71.3 Dietary counseling and surveillance; Z79.4 Long term (current) use of insulin; Z68.36 Body mass index [BMI] 36.0-36.9, adult
CPT/HCPCS: 36415; 36600; 70551; 71045; 71275; 74018; 80048; 80305; 80320; 82140; 82164; 82375; 82607; 82746; 82805; 82962; 83036; 83520; 83605; 83880; 84439; 84443; 84481; 84484; 85379; 85651; 86038; 86140; 86256; 86431; 86664; 86665; 92610; 93005; 93880; 93970; 94640; 94660; 96365; 96375; 97110; 97162; 97167; 97530; 97535; 99291; A6261; J0692; J1100; J1200; J1650; J1815; J1940; J1956; J2060; J2270; J2543; J2920; J2930; J3370; J3475; J3490; J7050; J7060; J7131; J7512; J7620; J7626; Q9967; G0480

== ENCOUNTER 2020-03-29 14:05 | Inpatient (IN) | payer MEDICARE, MEDICAID ==
[~2020-03-29] VITALS: Ht 182.9 cm; Wt 56.2 kg
[~2020-03-29 14:05] MED LIST changes: -ACET325C5 PO; +ACET325C7 PO; -LOSA50TA20 PO; +LOSA50TA41 PO
[2020-03-29 17:30] LABS: BASOPHILS % 0.7 % (0.0-2.0); EOSINOPHILS % 4.4 % (0.0-5.0); HEMATOCRIT. 35.2 % (42.0-52.0); HEMOGLOBIN. 12.4 g/dL (14.0-18.0); LYMPHOCYTES % 50.9 % (20.0-50.0); MEAN CORPUSCULAR HEMOGLOBIN 35.3 pg (28.0-32.0); MEAN PLATELET VOLUME 7.2 fl (7.4-10.4); MONOCYTES % 10.7 % (2.0-8.0); NEUTROPHILS % 33.3 % (40.0-76.0); PLATELET 254 x1000/uL (130-400); RED BLOOD CELL COUNT 3.51 mill/uL (4.7-6.1); RED CELL DISTRIBUTION WIDTH 14.6 % (11.6-14.6)
[2020-03-29 17:38] LABS: CHLORIDE 108 mEq/L (98-107)
[2020-03-29 17:42] LABS: ETHANOL BLOOD < 10 mg/dL
[2020-03-29 17:51] LABS: CLARITY URINE TURBID (CLEAR); COLOR URINE YELLOW (YELLOW); KETONES URINE NEGATIVE (NEGATIVE); LEUKOCYTE ESTERASE URINE TRACE (NEGATIVE); NITRITE URINE NEGATIVE (NEGATIVE); OCCULT BLOOD URINE TRACE (NEGATIVE); PH URINE 7.5 (4.5-8.0); PROTEIN URINE NEGATIVE (NEGATIVE); SPECIFIC GRAVITY URINE 1.016 (1.005-1.030)
[2020-03-29 18:00] LABS: *BARBITURATES SCREEN URINE NEGATIVE (NEGATIVE)
[2020-03-29 18:01] LABS: *AMPHETAMINES SCREEN URINE NEGATIVE (NEGATIVE); *BENZODIAZEPINES SCREEN URINE NEGATIVE (NEGATIVE); *COCAINE SCREEN URINE NEGATIVE (NEGATIVE); METHADONE URINE SCREEN NEGATIVE (NEGATIVE); OPIATES URINE SCREEN NEGATIVE (NEGATIVE); PHENCYCLIDINE URINE SCREEN NEGATIVE (NEGATIVE)
[2020-03-29 18:02] LABS: CANNABINOID URINE SCREEN NEGATIVE (NEGATIVE)
[2020-03-29] MEDS ORDERED: CLONIDINE 0.1MG TABLET PO PRN (19:30)
[2020-03-29] MEDS ORDERED: KETOROLAC 15MG/ML VIAL IV PRN (19:30)
[2020-03-29] MEDS ORDERED: MAGNESIUM/ALUMINUM HYDROXIDE/SIMETHICONE 30ML UDC PO PRN (19:30)
[2020-03-29] MEDS ORDERED: IPRATROPIUM/ALBUTEROL 0.5-3(2.5)MG/3ML NEB ORI PRN (19:30)
[2020-03-29] MEDS ORDERED: ZOLPIDEM TARTRATE 5MG TABLET PO PRN (19:30)
[2020-03-29] MEDS ORDERED: ACETAMINOPHEN 325MG TABLET PO PRN ×2 (19:30)
[2020-03-29] MEDS ORDERED: NA PHOS,M-B/NA PHOS,DI-BA ENEMA 118ML PR PRN (19:30)
[2020-03-29] MEDS ORDERED: DOCUSATE SODIUM 100MG CAPSULE PO PRN (19:30)
[2020-03-29] MEDS ORDERED: NITROGLYCERIN 0.4MG TABLET SL SL PRN (19:30)
[2020-03-29] MEDS ORDERED: TRAMADOL 50MG TABLET PO PRN (19:30)
[2020-03-29] MEDS ORDERED: ONDANSETRON HCL 4MG/2ML INJ IV PRN (19:30)
[2020-03-29] MEDS ORDERED: GUAIFENESIN 200MG/10ML SUGAR FREE UDC PO PRN (19:30)
[2020-03-29] MEDS: CLOPIDOGREL 75MG TABLET PO SCH (19:50)
[2020-03-29] MEDS ORDERED: CEFTRIAXONE 1 G PREMIX 50 ML IV SCH (20:00)
[2020-03-29] MEDS: SODIUM CHLORIDE 0.9% 1,000 ML IV SCH (20:25)
[2020-03-29 20:43] LABS: FOLIC ACID (FOLATE) SERUM 16.6 ng/mL (>5.38)
[2020-03-29] MEDS: ASCORBIC ACID 500 MG TABLET PO SCH (21:00)
[2020-03-29] MEDS: ENOXAPARIN 40MG/0.4ML SYR SUBCUT SCH (21:50)
[2020-03-29] MEDS: FAMOTIDINE 20MG TABLET PO SCH (22:00)
[2020-03-29] MEDS: ATORVASTATIN CALCIUM 40MG TABLET PO SCH (22:00)
[2020-03-29] MEDS: BLOOD SUGAR DIAGNOSTIC STRIP TEST SCH (23:00)
[2020-03-29] MEDS: INSULIN LISPRO 100 UNITS/ML SUBCUT SCH (23:00)
[2020-03-29 23:55] LABS: CREATINE KINASE 161 IU/L (39-308)
[2020-03-29 23:56] LABS: CREATINE KINASE MB FRACTION 2.5 ng/mL (0.5-3.6)
[2020-03-30] MEDS: DEXTROSE 50% WATER 50ML SYRINGE IV PRN ×2 (02:40→06:59)
[2020-03-30 03:10] VITALS: BP 121/41
[2020-03-30 03:23] VITALS: BP 121/41
[2020-03-30] MEDS: BLOOD SUGAR DIAGNOSTIC STRIP TEST SCH ×4 (07:38→21:00)
[2020-03-30] MEDS: INSULIN LISPRO 100 UNITS/ML SUBCUT SCH ×4 (07:38→21:00)
[2020-03-30 08:12] VITALS: BP 128/63
[2020-03-30 09:10] LABS: BASOPHILS % 0.9 % (0.0-2.0); EOSINOPHILS % 3.9 % (0.0-5.0); HEMOGLOBIN. 11.8 g/dL (14.0-18.0); MEAN CORPUSCULAR HEMOGLOBIN 34.8 pg (28.0-32.0); MEAN CORPUSCULAR VOLUME 100.2 fL (80.0-94.0); MEAN PLATELET VOLUME 7.2 fl (7.4-10.4); MONOCYTES % 12.9 % (2.0-8.0); NEUTROPHILS % 31.3 % (40.0-76.0); PLATELET 236 x1000/uL (130-400); RED BLOOD CELL COUNT 3.39 mill/uL (4.7-6.1); RED CELL DISTRIBUTION WIDTH 14.2 % (11.6-14.6)
[2020-03-30 09:13] LABS: CHLORIDE 110 mEq/L (98-107)
[2020-03-30 09:20] LABS: PHOSPHORUS 2.8 mg/dL (2.5-4.9)
[2020-03-30 09:23] LABS: CREATINE KINASE 118 IU/L (39-308)
[2020-03-30 09:25] LABS: CREATINE KINASE MB FRACTION 1.8 ng/mL (0.5-3.6)
[2020-03-30] MEDS: SODIUM CHLORIDE 0.9% 1,000 ML IV SCH ×2 (09:30→21:04)
[2020-03-30] MEDS: CLOPIDOGREL 75MG TABLET PO SCH (09:30)
[2020-03-30] MEDS: ZINC SULFATE 220 MG ( 50 ) CAPSULE PO SCH (09:30)
[2020-03-30] MEDS: ASCORBIC ACID 500 MG TABLET PO SCH ×2 (09:30→21:00)
[2020-03-30] MEDS: FAMOTIDINE 20MG TABLET PO SCH ×2 (09:30→20:57)
[2020-03-30 12:00] VITALS: BP 129/59
[2020-03-30 16:00] VITALS: BP 126/60
[2020-03-30 20:00] VITALS: BP 124/62
[2020-03-30] MEDS: ATORVASTATIN CALCIUM 40MG TABLET PO SCH (20:57)
[2020-03-30] MEDS: CEFTRIAXONE 1 G PREMIX 50 ML IV SCH (20:57)
[2020-03-30] MEDS: ENOXAPARIN 40MG/0.4ML SYR SUBCUT SCH (20:57)
[2020-03-31] VITALS: BP 119/74
[2020-03-31] MEDS: INSULIN LISPRO 100 UNITS/ML SUBCUT SCH ×4 (07:03→20:49)
[2020-03-31] MEDS: BLOOD SUGAR DIAGNOSTIC STRIP TEST SCH ×4 (07:03→20:49)
[2020-03-31 08:00] VITALS: BP 133/66
[2020-03-31] MEDS: ZINC SULFATE 220 MG ( 50 ) CAPSULE PO SCH (10:07)
[2020-03-31] MEDS: FAMOTIDINE 20MG TABLET PO SCH ×2 (10:07→21:34)
[2020-03-31] MEDS: CLOPIDOGREL 75MG TABLET PO SCH (10:07)
[2020-03-31] MEDS: ASCORBIC ACID 500 MG TABLET PO SCH ×2 (10:07→21:34)
[2020-03-31 12:00] VITALS: BP 150/72
[2020-03-31] MEDS: SODIUM CHLORIDE 0.9% 1,000 ML IV SCH (15:37)
[2020-03-31 16:00] VITALS: BP 168/70
[2020-03-31 20:00] VITALS: BP 161/70
[2020-03-31] MEDS: ENOXAPARIN 40MG/0.4ML SYR SUBCUT SCH (21:34)
[2020-03-31] MEDS: ATORVASTATIN CALCIUM 40MG TABLET PO SCH (21:34)
[2020-03-31] MEDS: CEFTRIAXONE 1 G PREMIX 50 ML IV SCH (21:35)
[2020-04-01] VITALS: BP 158/87
[2020-04-01] MEDS: SODIUM CHLORIDE 0.9% 1,000 ML IV SCH ×2 (00:13→14:15)
[2020-04-01 04:00] VITALS: BP 142/82
[2020-04-01] MEDS: BLOOD SUGAR DIAGNOSTIC STRIP TEST SCH ×3 (07:17→17:11)
[2020-04-01] MEDS: INSULIN LISPRO 100 UNITS/ML SUBCUT SCH ×3 (07:17→17:11)
[2020-04-01 07:44] LABS: HEMATOCRIT. 27.9 % (42.0-52.0); HEMOGLOBIN. 9.8 g/dL (14.0-18.0); MEAN CORPUSCULAR HEMOGLOBIN 34.9 pg (28.0-32.0); MEAN CORPUSCULAR VOLUME 99.5 fL (80.0-94.0); MEAN PLATELET VOLUME 7.5 fl (7.4-10.4); PLATELET 203 x1000/uL (130-400); RED CELL DISTRIBUTION WIDTH 13.9 % (11.6-14.6)
[2020-04-01 08:00] VITALS: BP 144/71
[2020-04-01] MEDS: ASCORBIC ACID 500 MG TABLET PO SCH (08:26)
[2020-04-01] MEDS: ZINC SULFATE 220 MG ( 50 ) CAPSULE PO SCH (08:26)
[2020-04-01] MEDS: CLOPIDOGREL 75MG TABLET PO SCH (08:26)
[2020-04-01 08:33] LABS: CHLORIDE 113 mEq/L (98-107)
[2020-04-01] MEDS ORDERED: FAMOTIDINE 20MG/2ML VIAL IV SCH (09:00)
[2020-04-01 12:00] VITALS: BP 141/73
[2020-04-01 14:11] LABS: PLATELET ESTIMATE NORMAL
[2020-04-01 16:00] VITALS: BP 134/65
[2020-04-01 17:14] VITALS: BP 134/65
== END 2020-04-01 18:50 | DRG 52 ==
LOC: ER 14:05 → 8WST 19:23 → SUPCPDRO 19:26 → ENRESERV 03-30 02:07
PROVIDERS: ADMIT Internal Medicine; ATTEND Internal Medicine
DX: G92 Toxic encephalopathy (principal); N39.0 Urinary tract infection, site not specified; E83.52 Hypercalcemia; E11.9 Type 2 diabetes mellitus without complications; J44.9 Chronic obstructive pulmonary disease, unspecified; I69.954 Hemiplegia and hemiparesis following unspecified cerebrovascular disease affecting left non-dominant side; Z79.82 Long term (current) use of aspirin; Z79.1 Long term (current) use of non-steroidal anti-inflammatories (NSAID); Z79.899 Other long term (current) drug therapy
CPT/HCPCS: 36415; 70551; 71045; 80053; 80061; 80305; 80320; 81003; 82140; 82550; 82553; 82607; 82746; 82962; 83036; 83540; 83550; 83605; 83735; 83970; 84100; 84443; 84484; 85025; 93306; 93970; 97162; 97166; 99285; J0696; J1650; J1885; J3490; G0480

== ENCOUNTER 2020-12-15 09:13 | Inpatient (IN) | payer MEDICARE, MEDICAID ==
[~2020-12-15] VITALS: Ht 167.6 cm; Wt 67.1 kg
[~2020-12-15 09:13] MED LIST changes: -ASPI-1158 PO
[2020-12-15] MEDS ORDERED: SODIUM CHLORIDE 0.9% 1,000 ML IV ONE ×2 (09:45→12:30)
[2020-12-15 10:02] LABS: BASOPHILS % 1.1 % (0.0-2.0); EOSINOPHILS % 0.9 % (0.0-5.0); HEMATOCRIT. 31.1 % (42.0-52.0); HEMOGLOBIN. 10.4 g/dL (14.0-18.0); LYMPHOCYTES % 37.8 % (20.0-50.0); MEAN CORPUSCULAR HEMOGLOBIN 34.5 pg (28.0-32.0); MEAN CORPUSCULAR VOLUME 102.9 fL (80.0-94.0); MEAN PLATELET VOLUME 7.1 fl (7.4-10.4); MONOCYTES % 10.1 % (2.0-8.0); NEUTROPHILS % 50.1 % (40.0-76.0); PLATELET 269 x1000/uL (130-400); RED BLOOD CELL COUNT 3.02 mill/uL (4.7-6.1); RED CELL DISTRIBUTION WIDTH 13.9 % (11.6-14.6)
[2020-12-15 10:10] LABS: CHLORIDE 106 mEq/L (98-107)
[2020-12-15 10:12] LABS: INR 1.1
[2020-12-15 10:40] LABS: COLOR URINE YELLOW (YELLOW); KETONES URINE NEGATIVE (NEGATIVE); LEUKOCYTE ESTERASE URINE NEGATIVE (NEGATIVE); NITRITE URINE NEGATIVE (NEGATIVE); OCCULT BLOOD URINE NEGATIVE (NEGATIVE); PROTEIN URINE NEGATIVE (NEGATIVE); SPECIFIC GRAVITY URINE 1.017 (1.005-1.030)
[2020-12-15 10:42] LABS: CLARITY URINE CLEAR (CLEAR)
[2020-12-15] MEDS ORDERED: LORAZEPAM 2MG/ML CPJ IV ONE ×2 (11:15→12:30)
[2020-12-15] MEDS ORDERED: HYDRALAZINE 20MG/ML VIAL IV ONE (11:15)
[2020-12-15] MEDS ORDERED: MORPHINE SULFATE 2 MG/ML CPJ (NOT FOR IM USE) IV PRN (15:00)
[2020-12-15] MEDS ORDERED: CLONIDINE 0.1MG TABLET PO PRN (15:00)
[2020-12-15] MEDS ORDERED: NA PHOS,M-B/NA PHOS,DI-BA ENEMA 118ML PR PRN (15:00)
[2020-12-15] MEDS ORDERED: ONDANSETRON HCL 4MG/2ML INJ IV PRN (15:00)
[2020-12-15] MEDS ORDERED: ACETAMINOPHEN 325MG TABLET PO PRN (15:00)
[2020-12-15] MEDS ORDERED: GUAIFENESIN 200MG/10ML SUGAR FREE UDC PO PRN (15:00)
[2020-12-15] MEDS ORDERED: IPRATROPIUM/ALBUTEROL 0.5-3(2.5)MG/3ML NEB NEB PRN (15:00)
[2020-12-15] MEDS ORDERED: DIPHENHYDRAMINE 50MG/ML VIAL IV PRN (15:00)
[2020-12-15] MEDS ORDERED: MAGNESIUM/ALUMINUM HYDROXIDE/SIMETHICONE 30ML UDC PO PRN (15:00)
[2020-12-15] MEDS ORDERED: LORAZEPAM 2MG/ML CPJ IV PRN (15:00)
[2020-12-15] MEDS ORDERED: DOCUSATE SODIUM 100MG CAPSULE PO PRN (15:00)
[2020-12-15 16:05] VITALS: BP 151/82
[2020-12-15 16:50] LABS: CHLORIDE 111 mEq/L (98-107)
[2020-12-15 17:00] VITALS: BP 158/71
[2020-12-15] MEDS ORDERED: DEXTROSE 50% WATER 50ML SYRINGE IV PRN ×2 (17:15)
[2020-12-15] MEDS: INSULIN LISPRO 100 UNITS/ML SUBCUT SCH ×2 (17:50→20:24)
[2020-12-15] MEDS: BLOOD SUGAR DIAGNOSTIC STRIP TEST SCH ×2 (18:10→20:24)
[2020-12-15] MEDS: ENOXAPARIN 40MG/0.4ML SYR SUBCUT SCH (18:50)
[2020-12-15] MEDS: SODIUM CHLORIDE 0.45% 1,000 ML IV SCH (18:50)
[2020-12-15] MEDS ORDERED: TRAZ-251 MT (19:00)
[2020-12-15] MEDS ORDERED: POLY119P2 MT (19:00)
[2020-12-15 20:35] VITALS: BP 131/79
[2020-12-15] MEDS: HYDROCODONE/ACETAMINOPHEN 5/325MG TABLET PO PRN (22:19)
[2020-12-16 00:43] VITALS: BP 125/69
[2020-12-16 04:00] VITALS: BP 122/81
[2020-12-16 06:29] LABS: CHLORIDE 107 mEq/L (98-107); EOSINOPHILS % 3.5 % (0.0-5.0); HEMATOCRIT. 28.3 % (42.0-52.0); HEMOGLOBIN. 9.5 g/dL (14.0-18.0); LYMPHOCYTES % 37.8 % (20.0-50.0); MEAN CORPUSCULAR HEMOGLOBIN 34.9 pg (28.0-32.0); MEAN CORPUSCULAR VOLUME 104.3 fL (80.0-94.0); MEAN PLATELET VOLUME 7.6 fl (7.4-10.4); MONOCYTES % 9.8 % (2.0-8.0); NEUTROPHILS % 47.9 % (40.0-76.0); PLATELET 240 x1000/uL (130-400); RED BLOOD CELL COUNT 2.71 mill/uL (4.7-6.1); RED CELL DISTRIBUTION WIDTH 13.9 % (11.6-14.6)
[2020-12-16] MEDS: BLOOD SUGAR DIAGNOSTIC STRIP TEST SCH ×4 (06:29→20:34)
[2020-12-16 06:36] LABS: HDL CHOLESTEROL 63 mg/dL (40-59); LDL CHOLESTEROL 69 mg/dL (5-100)
[2020-12-16 06:38] LABS: T4 FREE 1.38 ng/dL (0.76-1.46)
[2020-12-16] MEDS: INSULIN LISPRO 100 UNITS/ML SUBCUT SCH ×4 (07:50→20:34)
[2020-12-16 08:11] VITALS: BP 140/92
[2020-12-16] MEDS: HYDROCODONE/ACETAMINOPHEN 5/325MG TABLET PO PRN (10:59)
[2020-12-16 12:26] VITALS: BP 162/86
[2020-12-16 16:18] VITALS: BP 161/82
[2020-12-16] MEDS: ENOXAPARIN 40MG/0.4ML SYR SUBCUT SCH (17:44)
[2020-12-16] MEDS: SODIUM CHLORIDE 0.45% 1,000 ML IV SCH (17:45)
[2020-12-16 20:24] VITALS: BP 162/83
[2020-12-17] VITALS (7 sets, daily range): BP systolic 130–159; BP diastolic 82–92
[2020-12-17] MEDS: HYDROCODONE/ACETAMINOPHEN 5/325MG TABLET PO PRN (01:05)
[2020-12-17] MEDS: BLOOD SUGAR DIAGNOSTIC STRIP TEST SCH ×4 (07:20→21:00)
[2020-12-17] MEDS: INSULIN LISPRO 100 UNITS/ML SUBCUT SCH ×4 (07:50→21:00)
[2020-12-17] MEDS: ENOXAPARIN 40MG/0.4ML SYR SUBCUT SCH (16:13)
[2020-12-17] MEDS: SODIUM CHLORIDE 0.45% 1,000 ML IV SCH (16:13)
[2020-12-18] VITALS: BP 147/95
[2020-12-18 04:00] VITALS: BP 148/94
[2020-12-18] MEDS: BLOOD SUGAR DIAGNOSTIC STRIP TEST SCH ×4 (07:20→21:33)
[2020-12-18] MEDS: INSULIN LISPRO 100 UNITS/ML SUBCUT SCH ×4 (07:50→21:00)
[2020-12-18 08:00] VITALS: BP 142/77
[2020-12-18] MEDS: CLOPIDOGREL 75MG TABLET PO SCH (09:15)
[2020-12-18 09:16] LABS: T4 FREE 1.42 ng/dL (0.76-1.46)
[2020-12-18 12:00] VITALS: BP 135/68
[2020-12-18] MEDS: ENOXAPARIN 40MG/0.4ML SYR SUBCUT SCH (15:07)
[2020-12-18 16:00] VITALS: BP 146/90
[2020-12-18 16:59] LABS: FOLIC ACID (FOLATE) SERUM 19.3 ng/mL (>5.38)
[2020-12-18] MEDS ORDERED: LORAZEPAM 2MG/ML CPJ IV NR (20:30)
[2020-12-18 20:40] VITALS: BP 141/84
[2020-12-18] MEDS: SODIUM CHLORIDE 0.45% 1,000 ML IV SCH (21:21)
[2020-12-19 00:38] VITALS: BP 147/86
[2020-12-19 04:00] VITALS: BP 135/91
[2020-12-19] MEDS: BLOOD SUGAR DIAGNOSTIC STRIP TEST SCH ×4 (06:50→21:04)
[2020-12-19] MEDS: INSULIN LISPRO 100 UNITS/ML SUBCUT SCH ×4 (07:26→21:00)
[2020-12-19 08:00] VITALS: BP 124/82
[2020-12-19] MEDS: CLOPIDOGREL 75MG TABLET PO SCH (08:33)
[2020-12-19] MEDS ORDERED: LORAZEPAM 2MG/ML CPJ IV NR (09:00)
[2020-12-19 12:19] VITALS: BP 128/76
[2020-12-19] MEDS: ENOXAPARIN 40MG/0.4ML SYR SUBCUT SCH (15:44)
[2020-12-19] MEDS: SODIUM CHLORIDE 0.45% 1,000 ML IV SCH (15:46)
[2020-12-19 16:15] VITALS: BP 144/86
[2020-12-19 20:00] VITALS: BP 138/74
[2020-12-19] MEDS ORDERED: LORAZEPAM 2MG/ML CPJ IV ONE (21:00)
[2020-12-20] VITALS: BP 111/60
[2020-12-20 04:00] VITALS: BP 133/66
[2020-12-20] MEDS: BLOOD SUGAR DIAGNOSTIC STRIP TEST SCH ×2 (06:49→11:54)
[2020-12-20] MEDS: INSULIN LISPRO 100 UNITS/ML SUBCUT SCH ×2 (06:51→11:55)
[2020-12-20 07:51] VITALS: BP 124/73
[2020-12-20] MEDS: CLOPIDOGREL 75MG TABLET PO SCH (08:49)
[2020-12-20 11:44] VITALS: BP 124/75
[2020-12-20 12:49] VITALS: BP 124/74
== END 2020-12-20 15:10 | DRG 52 ==
LOC: ER 09:35 → EDBEDREQ 09:39 → EDBEDREQSVC 14:12 → EDBEDREQ 14:12 → ENRESERV 15:01 → 6WST 16:18
PROVIDERS: ADMIT Internal Medicine; ATTEND Internal Medicine
DX: G92 Toxic encephalopathy (principal); E11.9 Type 2 diabetes mellitus without complications; G90.8 Other disorders of autonomic nervous system; E46 Unspecified protein-calorie malnutrition; I11.0 Hypertensive heart disease with heart failure; I50.9 Heart failure, unspecified; J44.9 Chronic obstructive pulmonary disease, unspecified; E78.5 Hyperlipidemia, unspecified; E78.00 Pure hypercholesterolemia, unspecified; Z79.84 Long term (current) use of oral hypoglycemic drugs; I69.354 Hemiplegia and hemiparesis following cerebral infarction affecting left non-dominant side; Z88.6 Allergy status to analgesic agent; Z79.899 Other long term (current) drug therapy; Z79.1 Long term (current) use of non-steroidal anti-inflammatories (NSAID); Z68.23 Body mass index [BMI] 23.0-23.9, adult
CPT/HCPCS: 36415; 71045; 80048; 80053; 80061; 81003; 82140; 82607; 82746; 82962; 83036; 84439; 84443; 84481; 84484; 85025; 92523; 92610; 93005; 97162; 97165; 99285; J0360; J1650; J2060; J7030; A4315